=== PATIENT | female | born 1975 | race Two or more races ===

== ENCOUNTER 2016-04-21 21:41 | Emergency (ER) | payer MEDICAID ==
[~2016-04-21] VITALS: Ht 157.5 cm; Wt 67.1 kg
[2016-04-21 22:00] VITALS: BP 144/75
== END 2016-04-21 23:58 | disposition left against medical advice (07) ==
LOC: ER 21:46
DX: O20.8 Other hemorrhage in early pregnancy (principal); Z3A.00 Weeks of gestation of pregnancy not specified; Z53.21 Procedure and treatment not carried out due to patient leaving prior to being seen by health care provider